=== PATIENT | male | born 1940 | race Caucasian/White ===

== ENCOUNTER 2019-07-18 07:36 | Day surgery (SDC) | payer MEDICARE, OTHER, SELFPAY ==
--- NOTE | 2019-07-14 12:03 | PM.PREOP ---
Pre-operative Note Interval Note History & Physical reviewed/Exam performed by Physician: Yes Changes to H&P: No
--- NOTE | 2019-07-14 12:03 | PM.OP.1 ---
Operative Date/Time/Diagnoses Date of procedure: 07/18/19 Time of procedure: 10:45 Procedure & Clinicians Procedure: . Preoperative diagnoses: 1. 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 Postoperative diagnoses: 1. Advanced cataract removed by phacoemulsification with placement of posterior chamber intraocular lens. 2. Hypertension. Procedure: Phacoemulsification with posterior chamber intraocular lens implant ,Surgeon: Mary Holt MD Complications: None Specimen: None Implant: ZCBOO+20.0 Blood loss: None Anesthesia: Retrobulbar with monitored standby Description of procedure: Patient presents with a complaint of decreased vision due to cataract which is affecting activities of daily living. This is advanced rapidly in the last several months and is affecting his distance and reading vision. The patient wants surgery to improve vision. The iris is had the potential of coming floppy due to use of prostate like medication. he patient was taken to the operating room and given IV sedation. A retrobulbar block insert consisting of 6 cc of 2% xylocaine without epinephrine mixed half and half with 0.5% Marcaine with 1 cc of hyaluronidase added is placed between the medial and lateral 1/3 of the inferior orbital rim. Lid akinesia is obtain with 1% xylocaine with epinephrine infiltrated along the lid margin. The eye is manually massaged for 30 sec, prepped using Betadine solution, and draped in the usual sterile fashion. The iris was able to be maintained during the surgery without the need for a [place] ring. Temporal approach was made, a 1 mm side-port incision was made 90? from the proposed clear corneal incision position. Phenylephrine 1.5% mixed with 1% xylocaine 0.2 cc was placed into the anterior chamber. Viscoat followed by Lisha was then placed. A 2.6 mm clear incision with a 2.6 mm blade was placed. A 360 degree capsulorrhexis style capsulotomy was then performed with a cystitome needle on a Healon aided by the enlarged pupil. Hydrodelineation and hydrodissection were performed. The phacoemulsification unit is introduced, and sculpting used to groove the central lens. It is then removed in chopping mode. Epi nucleus is removed with epinuclear mode and irrigation aspiration was used to remove the peripheral cortex. The posterior capsule is polished. The intraocular lens is selected, inspected, power confirmed, and placed in the posterior chamber. The iris did not flop during the procedure. The wound was stromally hydrated and tested for leaks, there was none and it was left sutureless. Moxifloxacin 0.1 cc was placed into the anterior chamber. Kenalog 0.2 cc was placed in the superior subconjunctival space. A drop of antibiotic and was placed and the eye was patched and shielded. The patient was stable and returned to the recovery room in excellent condition. Dictated by: Mary Holt MD Copy to: [facility] Same procedure as scheduled: Yes
[2019-07-18 09:38] VITALS: BP 144/75; PULSE 58; RESP 15; TEMP 36.4; O2SAT 98; BMI 25.8
[2019-07-18] MEDS: PROPARACAINE 0.5% OPHTH SOL 2 DROPS EYE-OP (09:45)
[2019-07-18] MEDS: CATARACT EYE COMPOUND (10 DROPS/SYRINGE) 3 DROPS EYE-OP (09:46)
[2019-07-18] MEDS: ERYTHROMYCIN OPHTH 1 GM OINT 1 APPLIC EYE-RIGHT (11:15)
[2019-07-18] MEDS: MOXIFLOXACIN INJ 5 MG/ML VIAL EYE-OP (11:15)
[2019-07-18] MEDS: PHENYLEPHRINE/LIDOCAINE VIAL (OR) 0.2 ML EYE-OP (11:16)
[2019-07-18] MEDS: TRIAMCINOLONE 50 MG/5 ML VIAL INJ (11:16)
[2019-07-18] MEDS: HYALURONATE SODIUM 10 MG/ML SYRINGE INJ (11:17)
[2019-07-18] MEDS: CHONDROIDTIN/SOD HYALURONATE 1.05 ML SYRINGE INTRAOCULA (11:17)
[2019-07-18] MEDS: BALANCED SALT IRRIG SOLN NO.2 500 ML, EPINEPHrine 1 MG IRR (11:18)
[2019-07-18] MEDS: LIDOCAINE 2% 4 ML, BUPIVACAINE 0.5% (PF) 4 ML, HYALURONIDASE 150 UNIT INJ (11:18)
[2019-07-18 11:51] VITALS: BP 123/60; PULSE 60; RESP 16; TEMP 36.1; O2SAT 98
== END 2019-07-18 11:58 | disposition home or self-care (01) ==
LOC: OR 07:43
PROVIDERS: Referring Provider Ophthalmology; Visit Provider Ophthalmology
PROC: (CPT 66984; principal; 2019-07-18 10:45)
DX: H25.811 Combined forms of age-related cataract, right eye (principal)
CPT/HCPCS: 66984; J0171; J2704; J3301; J3470

== ENCOUNTER 2019-08-01 07:08 | Day surgery (SDC) | payer MEDICARE, OTHER, SELFPAY ==
--- NOTE | 2019-07-27 19:09 | PM.PREOP ---
Pre-operative Note Interval Note History & Physical reviewed/Exam performed by Physician: Yes Changes to H&P: No
--- NOTE | 2019-08-01 07:09 | PM.OP.1 ---
Operative Date/Time/Diagnoses Date of procedure: 08/01/19 Time of procedure: 08:45 Procedure & Clinicians Procedure: Preoperative diagnoses: 1. Left advanced nuclear sclerotic and cortical cataract. 2. 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 Postoperative diagnoses: 1. Cataract removed by phacoemulsification with placement of posterior chamber intraocular lens. Procedure: Phacoemulsification with posterior chamber intraocular lens implant Surgeon: Mary Holt MD Complications: None Specimen: None Implant: ZCBOO+20.5 Blood loss: None Anesthesia: Retrobulbar with monitored standby Description of procedure: Patient presents with a complaint of decreased vision due to cataract which is affecting activities of daily living including driving and reading. The patient wants surgery to improve vision. He has had successful right cataract surgery without a floppy iris. The patient was taken to the operating room and given IV sedation. A retrobulbar block consisting of 6 cc of 2% xylocaine without epinephrine mixed half and half with 0.5% Marcaine with 1 cc of hyaluronidase added is placed between the medial and lateral 1/3 of the inferior orbital rim. The eye is manually massaged for 30 sec, prepped using Betadine solution, and draped in the usual sterile fashion. Temporal approach was made, a 1 mm side-port incision was made 90? from the proposed clear corneal incision position. Phenylephrine 1.5% mixed with 1% xylocaine 0.2 cc was placed into the anterior chamber. Viscoat followed by Lisha was then placed. A 2.6 mm clear incision with a 2.6 mm blade was placed. A 360 degree capsulorrhexis style capsulotomy was then performed with a cystitome needle on a Healon. Hydrodelineation and hydrodissection were performed. The phacoemulsification unit is introduced, and sculpting notice used to groove the central lens. It is then removed in chopping mode. Epi nucleus is removed with epinuclear mode and irrigation aspiration was used to remove the peripheral cortex. The posterior capsule is polished. The intraocular lens is selected, inspected, power confirmed, and placed in the posterior chamber. The wound was stromally hydrated and tested for leaks, there was none and it was left sutureless. Vigamox 0.1 cc was placed into the anterior chamber. Kenalog 0.2 cc was placed in the superior subconjunctival space. A drop of antibiotic and was placed and the eye was patched and shielded. The patient was stable and returned to the recovery room in excellent condition. Dictated by: Mary Holt MD Copy to: [facility] Same procedure as scheduled: Yes
[2019-08-01 07:50] VITALS: BP 124/68; PULSE 50; RESP 16; TEMP 36.3; O2SAT 98; BMI 25.6
[2019-08-01] MEDS: PROPARACAINE 0.5% OPHTH SOL 2 DROPS EYE-OP (07:56)
[2019-08-01] MEDS: CATARACT EYE COMPOUND (10 DROPS/SYRINGE) 3 DROPS EYE-OP (07:57)
[2019-08-01] MEDS: HYALURONATE SODIUM 10 MG/ML SYRINGE INJ (09:22)
[2019-08-01] MEDS: BALANCED SALT IRRIG SOLN NO.2 500 ML, EPINEPHrine 1 MG IRR (09:22)
[2019-08-01] MEDS: ERYTHROMYCIN OPHTH 1 GM OINT 1 APPLIC EYE-LEFT (09:22)
[2019-08-01] MEDS: LIDOCAINE 2% 4 ML, BUPIVACAINE 0.5% (PF) 4 ML, HYALURONIDASE 150 UNIT INJ (09:23)
[2019-08-01] MEDS: PHENYLEPHRINE/LIDOCAINE VIAL (OR) 0.2 ML EYE-OP (09:24)
[2019-08-01] MEDS: MOXIFLOXACIN INJ 5 MG/ML VIAL EYE-OP (09:24)
[2019-08-01] MEDS: TRIAMCINOLONE 50 MG/5 ML VIAL INJ (09:24)
[2019-08-01] MEDS: CHONDROIDTIN/SOD HYALURONATE 1.05 ML SYRINGE INTRAOCULA (09:25)
== END 2019-08-01 10:00 | disposition home or self-care (01) ==
LOC: OR 07:10
PROVIDERS: PCP Family Medicine; Referring Provider Ophthalmology; Visit Provider Ophthalmology
PROC: (CPT 66984; principal; 2019-08-01 08:45)
DX: H25.812 Combined forms of age-related cataract, left eye (principal); H21.81 Floppy iris syndrome
CPT/HCPCS: 66984; J0171; J2704; J3301; J3470